=== PATIENT | female | born 1960 | race Caucasian/White ===

== ENCOUNTER 2019-12-15 15:55 | Outpatient (CLI) | payer OTHER, SELFPAY ==
[2019-12-15 17:59] LABS: Blood Urea Nitrogen 13 mg/dL (7-17); Calcium 9.6 mg/dL (8.4-10.2); Carbon Dioxide 27 mmol/L (22-30); Chloride 99 mmol/L (98-107); Cholesterol 155 mg/dL (0-200); Estimated Glomerular Filt Rate > 60; Glucose 146 mg/dL (65-105); HDL Direct 70 mg/dL; Potassium 4.5 mmol/L (3.4-5.0); Sodium 141 mmol/L (137-145); Triglycerides 115 mg/dL (<150)
[2019-12-15 18:03] LABS: Hemoglobin A1C 6.8 % (<5.7)
[2019-12-15 18:10] LABS: LDL Cholesterol Direct 70 mg/dL
[2019-12-15 18:17] LABS: Free T4 Free Thyroxine 1.17 ng/mL (0.78-2.19)
[2019-12-15 18:30] LABS: Thyroid Stimulating Hormone 0.171 uIU/mL (0.465-4.680)
[2019-12-15 18:31] LABS: MALB Creatinine Ratio < 4.3 mg/g (0-30); Microalbumin Urine Random < 6.0 mg/L (0-16.7)
[2019-12-18 14:23] LABS: Iron 144 ug/dL (37-170)
[2019-12-18 14:31] LABS: Percent Iron Saturation 44 % (20-50)
[2019-12-19 22:37] LABS: ALT 18 U/L (6-29); Alpha-2-Macroglobulin 226 mg/dL (106-279); Apolipoprotein A1 194 mg/dL (101-198); Fibrosis Score 0.06; Fibrosis Stage F0; GGT 6 U/L (3-70); Haptoglobin 243 mg/dL (43-212); Necroinflammat Act Grade A0; Total Bilirubin 0.5 mg/dL (0.2-1.2)
== END 2019-12-15 15:56 | disposition home or self-care (01) ==
LOC: ANHBWCLAB 15:59
PROVIDERS: PCP Internal Medicine; Visit Provider Internal Medicine
DX: Z79.899 Other long term (current) drug therapy (principal); E11.9 Type 2 diabetes mellitus without complications; E78.5 Hyperlipidemia, unspecified
CPT/HCPCS: 36415; 80048; 80061; 81596; 82043; 82542; 82728; 83036; 83540; 83550; 84439; 84443

== ENCOUNTER → 2020-07-19 13:25 | Outpatient (CLI) | payer OTHER, SELFPAY ==
--- NOTE | ~2020-07-19 | DEXA_ITS ---
Bone Density Report Name: Indira Olivo Age: 60 Sex: Female Ethnicity: White Date of : 1960 Indication: postmenopausal; screening for osteoporosis; height loss; asthma or emphysema; Referring Provider: Chelsi Pagan Study: Bone densitometry was performed. Exam Date: July 19, 2020 Accession number: [id number] Bone Density: Region BMD T-score Z-score Classification AP Spine (L1-L4) 1.168 1.1 2.5 Normal Femoral Neck (Left) 0.843 -0.1 1.2 Normal Total Hip (Left) 0.994 0.4 1.3 Normal Femoral Neck (Right) 0.877 0.3 1.5 Normal Total Hip (Right) 1.015 0.6 1.5 Normal Total Hip Mean 1.005 0.5 1.4 Normal World Health Organization criteria for BMD impression classify patients as: Normal (T-score at or above -1.0), Osteopenia (T-score between -1.0 and -2.5), or Osteoporosis (T-score at or below -2.5). 10-year Fracture Risk: FRAX not reported because: All T-scores for Spine Total, Hip Total, Femoral Neck at or above -1.0 Previous Exams: Region Exam Age BMD T-score BMD Change BMD Change Date g/cm2 vs Baseline vs Previous AP Spine(L1-L4) 07/19/2020 60 1.168 1.1 -0.065* -0.043* 09/29/2015 55 1.211 1.5 -0.022 -0.022 05/01/2011 51 1.233 1.7 Total Hip(Left) 07/19/2020 60 0.994 0.4 -0.126* -0.118* 09/29/2015 55 1.113 1.4 -0.008 -0.008 05/01/2011 51 1.121 1.5 Total Hip(Right) 07/19/2020 60 1.015 0.6 -0.142* -0.121* 09/29/2015 55 1.136 1.6 -0.020 -0.020 05/01/2011 51 1.157 1.8 *Denotes significance at 95% confidence level, LSC for AP Spine = 0.022 g/cm2, LSC for Total Hip = 0.027 g/cm2 Clinical Information Provided by Patient: Has used the following medications: Vitamin D, Calcium Has the following medical conditions: Asthma or Emphysema Patient maximum height was 69 Menopause Age: 50 No regular weight bearing exercise Drinks caffeinated beverages Onset of menses at age 12 Number of children 0 Missed period for more than 6 months in a row Impression: The patient has normal bone mass. The BMD for the AP Spine(L1-L4) decreased, changing by -0.043 since the last DXA exam. The BMD for the Total Hip(Left) decreased, changing by -0.118 since the last DXA exam. The BMD for the Total Hip(Right) decreased, changing by -0.121 since the last DXA exam. Discussion: BONE DENSITY IS ABOVE THE MINIMUM DESIRABLE LE
== END ==
PROVIDERS: PCP Internal Medicine; Visit Provider Student in an Organized Health Care Education/Training Program
DX: Z78.0 Asymptomatic menopausal state (principal)
CPT/HCPCS: 77080

== ENCOUNTER 2023-01-29 14:04 | Outpatient (CLI) | payer BC, SELFPAY ==
--- NOTE | ~2023-01-29 | US_ITS ---
Pelvic ultrasound. Clinical History: Postmenopausal bleeding Technique: Realtime transabdominal and transvaginal scanning of the pelvis was performed. Color flow Doppler and Doppler spectral analysis were performed. Findings: The uterus is retroverted. The endometrial stripe has a thickness of 2 mm. No focal myomet rial mass is identified. Prominent nabothian cyst measures 1.8 cm in diameter. The right ovary is not visualized. No significant right ovarian or adnexal mass is seen. The left ovary measures 1.6 x 1.4 x 1.4 cm. No significant left ovarian or adnexal mass is seen. There is no evidence of free fluid in the cul de sac. Impression: No abnormal endometrial thickening. Prominent cervical nabothian cysts. Right ovary not visualized. Reviewed, dictated and finalized at [facility]. Impression: No abnormal endometrial thickening. Prominent cervical nabothian cysts. Right ovary not visualized.
== END 2023-01-29 14:05 | disposition home or self-care (01) ==
PROVIDERS: PCP Physician Assistant; Visit Provider Registered Nurse
DX: N95.0 Postmenopausal bleeding (principal); N88.8 Other specified noninflammatory disorders of cervix uteri
CPT/HCPCS: 76830; 76856

== ENCOUNTER 2023-02-12 01:13 | Day surgery (SDC) | payer BC, SELFPAY ==
[2023-02-05 11:50] VITALS: BMI 23.6
--- NOTE | 2023-02-12 07:27 | WPDANESEPPF ---
Anes - Initial Pre Proc Eval Procedure: Operation Date: 02/12/23 11:30 Proposed Procedures p Screening Colonoscopy - Ronaldo Canchola MD Date/Time: 02/12/23 07:27 Surgeon: Ronaldo Canchola MD Pre Op Diagnosis: neoplasm screening Patient Data Age: 63 Gender: F Height: 1.75 m Weight: 72.7 kg Allergies Allergy/AdvReac Type Severity Reaction Status Date / Time No Known Allergies Allergy Verified 02/12/23 10:19 Home Medications Medication Instructions Recorded Confirmed Type aspirin 81 mg tablet,delayed 81 mg PO DAILY 12/22/19 02/06/23 History release (Aspir-Low) calcium carbonate 500 mg-vitamin 2 tablet PO DAILY 12/22/19 02/06/23 History D3 10 mcg (400 unit) tablet (Calcium 500 + D) multivitamin 1 tablet PO DAILY 12/22/19 02/06/23 History omega-3 fatty acids 1,000 mg 2,000 mg PO DAILY 12/22/19 02/06/23 History capsule (Fish Oil Concentrate) vit C 250 mg-vit E 90 mg-zinc 40 1 tablet PO BID 12/22/19 02/06/23 History mg-copper 1 [id number] capsule (PreserVision AREDS-2) cholecalciferol (vitamin D3) 25 2,000 unit PO DAILY 01/25/21 02/06/23 History mcg (1,000 unit) capsule omeprazole 20 mg capsule,delayed 20 mg PO DAILY #90 caps 09/26/21 02/06/23 Rx release pravastatin 20 mg tablet See Rx Instructions .Route 01/23/22 02/06/23 Rx .COMPLEX #90 tabs trazodone 100 mg tablet 200 mg PO DAILY sleep #180 tabs 01/23/22 02/06/23 Rx melatonin 5 mg capsule 5 mg PO HS PRN Sleep 05/17/22 02/06/23 History albuterol sulfate 90 mcg/actuation 2 puff inhalation Q4-6H PRN 06/07/22 02/06/23 Rx aerosol inhaler shortness of breath or wheezing #8.5 grams fluticasone 250 mcg-salmeterol 50 1 inh inhalation BID #60 ea 06/07/22 02/06/23 Rx mcg/dose blistr powdr for inhalation (Advair Diskus) venlafaxine 150 mg 150 mg PO DAILY #90 caps 06/28/22 02/06/23 Rx capsule,extended release 24 hr verapamil 240 mg tablet,extended See Rx Instructions .Route 10/18/22 02/06/23 Rx release .COMPLEX #180 tabs lisinopril 40 mg tablet See Rx Instructions .Route 11/22/22 02/06/23 Rx .COMPLEX #180 tabs metformin 1,000 mg tablet 1,000 mg PO BID #180 tabs 11/22/22 02/06/23 Rx oxybutynin chloride 5 mg 5 mg PO DAILY #90 tabs 01/09/23 02/06/23 Rx tablet,extended release 24 hr semaglutide 0.25 mg or 0.5 mg (2 0.5 mg (0.8 mL) subcut WEEKLY #3 mL 01/19/23 02/06/23 Rx mg/3 mL) subcutaneous pen injector (Ozempic) celecoxib 200 mg capsule 200 mg PO DAILY PRN Pain 02/06/23 02/06/23 History Patient hx anesthesia problems: none Family hx anesthesia problems: none Results Review: All pre-operative results and documents have been reviewed as part of the pre-operative evaluation. 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
[2023-02-12 10:20] VITALS: BP 146/78; PULSE 98; RESP 20; TEMP 36; O2SAT 100
[2023-02-12] MEDS: LACTATED RINGERS 1,000 ML 150 ML IV CONT (10:36)
[2023-02-12 10:40] LABS: Glucose Point of Care 140 mg/dl (65-105)
--- NOTE | 2023-02-12 10:40 | PM.HPGS ---
History of Present Illness History of Present Illness Consent: Risks, benefits, and alternatives have been discussed and questions answered. Patient agrees to proceed with procedure. Chief complaint: neoplasm screening Narrative: Indira Olivo is a 63 year old female with history of polyp, last colonoscopy 2018 Review of Systems Constitutional: Constitutional: Denies headache(s) and Denies weakness Eyes: Eyes: Denies blurry vision ENT: Reports Normal hearing present, Denies headache(s) and Denies neck pain Cardiovascular: Cardiovascular: Denies chest pain and Denies dyspnea Respiratory: Respiratory: Denies dyspnea Gastrointestinal: Gastrointestinal: Reports no additional gastrointestinal complaints Genitourinary: Genitourinary: Denies dysuria Musculoskeletal: Musculoskeletal: Denies neck pain Integumentary/Breasts: Skin/Breast: Denies dry skin Neurologic: Reports Normal hearing present, Denies headache(s) and Denies weakness Psychiatric: Psychiatric: Denies anxiety Endocrine: Endocrine: Denies change in body appearance Hematologic/Lymphatic: Hematologic/Lymphatic: Denies easy bleeding Allergic/Immunologic: Allergic/Immunologic: Denies urticaria PMFSH Past Medical History Medical History (Updated 02/12/23 @ 10:42 by Ronaldo Canchola MD) Abnormal finding of blood chemistry Abnormal TSH Benign essential hypertension BMI 26.0-26.9,adult BMI 27.0-27.9,adult Colon polyp Deafness in right ear Depression DM type 2 (diabetes mellitus, type 2) Encounter for preventive health examination Encounter for routine adult health examination without abnormal findings Family history of colorectal cancer GERD (gastroesophageal reflux disease) Hearing loss Hx of colonic polyps Hyperlipidemia Insomnia Mild reactive airways disease On termite renewal inspector drug therapy NIGEL (obstructive sleep apnea) Parotitis RLS (restless legs syndrome) Vitamin D deficiency Surgical History Surgical History (Updated 01/09/23 @ 13:08 by Valeria Fuentes MA) History of colonoscopy with polypectomy 2018 History of ear surgery History of endometrial ablation [place] teeth extracted Family History Family History Sibling Family history of malignant neoplasm of breast in first degree relative Cerebrovascular accident Family history of primary malignant neoplasm of liver Diabetes mellitus Father Family history of diabetes mellitus in first degree relative Diabetes mellitus Mother Family history of diabetes mellitus in first degree relative Diabetes mellitus Grandparent Diabetes mellitus Other Hypertension Social History Social History (Updated 01/09/23 @ 13:09 by MERISSA Wright Smoking status: Never smoker Second hand tobacco smoke exposure: No Alcohol intake: never Substance use: never Substance use type: does not use Lack of Transportation: No Lack of Food: Never True Current Housing: I Have Housing Concerned About Future Housing: No Difficulty Paying Gas/Electric Bills: No Difficulty Paying for Meds: No Currently Unemployed: No Education: High School Diploma/GED Difficulty w/ Childcare or Family Care: No Living arrangements: alone Occupation/Education: retired Gender identity (if verbalized by the patient): Female Sexual Orientation (if Verbalized by the Patient): Straight or Heterosexual Spiritual care concerns: No Meds Home Medications and Allergies Home Medications Medication Instructions Recorded Confirmed Type aspirin 81 mg tablet,delayed 81 mg PO DAILY 12/22/19 02/06/23 History release (Aspir-Low) calcium carbonate 500 mg-vitamin 2 tablet PO DAILY 12/22/19 02/06/23 History D3 10 mcg (400 unit) tablet (Calcium 500 + D) multivitamin 1 tablet PO DAILY 12/22/19 02/06/23 History omega-3 fatty acids 1,000 mg 2,000 mg PO DAILY 12/22/19 02/06/23 History capsule (Fish Oil Magalie
[2023-02-12 11:11] VITALS: BP 121/57; PULSE 80; RESP 27; O2SAT 100
[2023-02-12 11:21] VITALS: BP 117/58; PULSE 77; RESP 16; O2SAT 100
[2023-02-12 11:31] VITALS: BP 137/69; PULSE 74; RESP 23; O2SAT 100
== END 2023-02-12 11:37 | disposition home or self-care (01) ==
PROVIDERS: PCP Physician Assistant; Visit Provider Internal Medicine Gastroenterology
PROC: 0DJD8ZZ Inspection of Lower Intestinal Tract, Via Natural or Artificial Opening Endoscopic (ICD-10-PCS; CPT 45378; principal; 2023-02-12 11:30)
DX: Z12.11 Encounter for screening for malignant neoplasm of colon (principal); D12.5 Benign neoplasm of sigmoid colon; K64.8 Other hemorrhoids; I10 Essential (primary) hypertension; E11.9 Type 2 diabetes mellitus without complications; E78.5 Hyperlipidemia, unspecified; G47.33 Obstructive sleep apnea (adult) (pediatric); K21.9 Gastro-esophageal reflux disease without esophagitis; J45.909 Unspecified asthma, uncomplicated; E55.9 Vitamin D deficiency, unspecified; F32.A Depression, unspecified; Z79.82 Long term (current) use of aspirin; Z79.51 Long term (current) use of inhaled steroids; Z79.84 Long term (current) use of oral hypoglycemic drugs; Z79.899 Other long term (current) drug therapy
CPT/HCPCS: 45385; 82948; 88305; J2704; J7120

== ENCOUNTER 2023-04-02 22:22 | Emergency (ER) | payer BC, SELFPAY ==
--- NOTE | ~2023-04-02 | CT_ITS ---
EXAMINATION: CT abdomen pelvis w con DATE: 04/03/2023 00:57 INDICATION: Left lower quadrant pain. TECHNIQUE: Computed tomography (CT) of the abdomen and pelvis was performed with 100 cc Omnipaque 350 intravenous contrast. The dose-length product was 614.00 mGy-cm. Automated exposure control and iter ative reconstruction technique were employed. COMPARISON: None. FINDINGS: Lung bases are unremarkable. Heart size normal. No significant pleural or pericardial effus ion. There is calcified granulomas in the left lower lobe, liver and spleen. Study limited by motion. Fatty infiltration of the liver. The pancreas, adrenal glands and kidneys ar e unremarkable. There is extensive colonic wall mucosal thickening extending from the transverse colo n through the sigmoid colon and rectum. No obstruction. Small amount of free fluid in the pelvis. No free air. Status post hysterectomy with small nabothian cysts in the cervix. No acute osseous abnorma lity. IMPRESSION: 1. Extensive colonic wall mucosal thickening, compatible with colitis, most likely infectious or infl ammatory. Reviewed, dictated and finalized at location [facility]. IMPRESSION: 1. Extensive colonic wall mucosal thickening, compatible with colitis, most lik nellie infectious or inflammatory.
[2023-04-02 22:29] VITALS: BP 147/96; PULSE 115; RESP 17; TEMP 36.4; O2SAT 100
[2023-04-02 23:15] VITALS: O2SAT 100
[2023-04-02 23:16] VITALS: BP 173/80; O2SAT 99
[2023-04-02 23:23] LABS: Basophils Absolute Auto 0.1 K/mm3 (0.0-0.1); Basophils Percent Auto 0.5 % (0.2-1.2); Eosinophils Percent Auto 0.2 % (0-4.4); Hematocrit 42.3 % (37.0-47.0); Hemoglobin 14.2 g/dL (12.0-15.0); Immature Granulocyte Absolute 0.14 K/mm3 (0.00-0.031); Immature Granulocyte Percent A 0.6 % (0-0.5); Lymphocytes Absolute Auto 3.27 K/mm3 (0.9-3.2); Lymphocytes Percent Auto 14.2 % (18.3-44.2); Mean Corpuscular HGB Conc 33.6 g/dl (32-36); Mean Corpuscular Hemoglobin 28.9 pg (26-34); Mean Corpuscular Volume 86.2 fl (80-100); Mean Platelet Volume 9.9 fl (7.4-10.4); Monocytes Absolute Auto 1.6 K/mm3 (0.1-0.6); Neutrophils Absolute Auto 17.9 K/mm3 (1.3-6.7); Neutrophils Percent Auto 77.5 % (45.5-73.1); Platelet Count Result 297 k/mm3 (150-375); Red Blood Count 4.91 M/mm3 (4.2-5.4); Red Cell Distribution Width 13.8 % (11.5-14.5); White Blood Count 23.1 K/mm3 (4.5-10.0)
[2023-04-02 23:30] VITALS: O2SAT 99
[2023-04-02 23:31] VITALS: BP 174/77; PULSE 78; RESP 14; O2SAT 99
[2023-04-02 23:45] VITALS: O2SAT 100
[2023-04-02 23:50] LABS: Alanine Aminotransferase 15 U/L (6-35); Albumin Level 4.5 g/dL (3.5-5.1); Alkaline Phosphatase 73 U/L (38-126); Anion Gap 11 mmol/L (8-16); Aspartate Amino Transferase 21 U/L (14-36); Bilirubin,Total 0.8 mg/dL (0.2-1.3); Blood Urea Nitrogen 14 mg/dL (7-17); Calcium 9.5 mg/dL (8.4-10.2); Carbon Dioxide 25 mmol/L (22-30); Chloride 100 mmol/L (98-107); Estimated CRCL calculation 59 ml/min; Estimated Glomerular Filt Rate > 60; Glucose 224 mg/dL (65-110); Lipase 91 U/L (23-300); Potassium 4.3 mmol/L (3.4-5.0); Sodium 136 mmol/L (137-145)
[2023-04-03] VITALS (9 sets, daily range): BP systolic 147–173; BP diastolic 63–78; PULSE 95–100; RESP 14; O2SAT 99–100
[2023-04-03] MEDS: SODIUM CHLORIDE 0.9% IV 1,000 ML 999 ML IV CONT (00:11)
--- NOTE | 2023-04-03 00:11 | ED.GENADULT ---
HPI - General Adult General Chief complaint: Abdominal Pain Stated complaint: abd pain/blood in stool Time Seen by Provider: 04/02/23 23:06 History of Present Illness HPI narrative: Patient 63-year-old female who presents the emergency department with chief complaint of left lower quadrant pain and rectal bleeding. Patient reports she has history of internal hemorrhoids and reports that she had a large bowel movement on Sunday that was very tough the patient states she started a stool softener and then had a normal bowel movement but did have some blood patient reports since then she has not had a bowel movement blood but has had blood coming from her rectum and reports that she started having pain in the left lower quadrant patient reports no prior history of diverticulitis Related Data Home Medications Medication Instructions Recorded Confirmed aspirin 81 mg tablet,delayed 81 mg PO DAILY 12/22/19 02/06/23 release (Aspir-Low) calcium carbonate 500 mg-vitamin 2 tablet PO DAILY 12/22/19 02/06/23 D3 10 mcg (400 unit) tablet (Calcium 500 + D) multivitamin 1 tablet PO DAILY 12/22/19 02/06/23 omega-3 fatty acids 1,000 mg 2,000 mg PO DAILY 12/22/19 02/06/23 capsule (Fish Oil Concentrate) vit C 250 mg-vit E 90 mg-zinc 40 1 tablet PO BID 12/22/19 02/06/23 mg-copper 1 [id number] capsule (PreserVision AREDS-2) cholecalciferol (vitamin D3) 25 2,000 unit PO DAILY 01/25/21 02/06/23 mcg (1,000 unit) capsule melatonin 5 mg capsule 5 mg PO HS PRN Sleep 05/17/22 02/06/23 celecoxib 200 mg capsule 200 mg PO DAILY PRN Pain 02/06/23 02/06/23 Allergies Allergy/AdvReac Type Severity Reaction Status Date / Time No Known Allergies Allergy Verified 04/03/23 00:12 Review of Systems Review of Systems: A 10 system review of systems was completed on the patient and is negative except for what is stated in the HPI. Nursing and ancillary documentation was reviewed. [facility] Past Medical History Medical History Abnormal finding of blood chemistry Abnormal TSH Benign essential hypertension BMI 26.0-26.9,adult BMI 27.0-27.9,adult Colon polyp Deafness in right ear Depression DM type 2 (diabetes mellitus, type 2) Encounter for preventive health examination Encounter for routine adult health examination without abnormal findings Family history of colorectal cancer GERD (gastroesophageal reflux disease) Hearing loss Hx of colonic polyps Hyperlipidemia Insomnia Mild reactive airways disease On intermodal truck driver drug therapy NIGEL (obstructive sleep apnea) Parotitis RLS (restless legs syndrome) Vitamin D deficiency Surgical History Surgical History History of colonoscopy with polypectomy 2018 History of ear surgery History of endometrial ablation [place] teeth extracted Family History Family History Sibling Family history of malignant neoplasm of breast in first degree relative Cerebrovascular accident Family history of primary malignant neoplasm of liver Diabetes mellitus Father Family history of diabetes mellitus in first degree relative Diabetes mellitus Mother Family history of diabetes mellitus in first degree relative Diabetes mellitus Grandparent Diabetes mellitus Other Hypertension Social History Social History Smoking status: Never smoker Second hand tobacco smoke exposure: No Alcohol intake: never Substance use: never Substance use type: does not use Lack of Transportation: No Lack of Food: Never True Current Housing: I Have Housing Concerned About Future Housing: No Difficulty Paying Gas/Electric Bills: No Difficulty Paying for Meds: No Currently Unemployed: No Education: High School Diploma/GED Difficulty w/ Childcare or
[2023-04-03 00:24] LABS: Lactic Acid Reflex 1.5 mmol/L (0.7-2.0)
[2023-04-03 00:38] LABS: INR 1.1; Prothrombin Time 14.2 Seconds (11.1-14.7)
[2023-04-03 00:39] LABS: Partial Thromboplastin Time 24.1 SECONDS (22.3-36.8)
[2023-04-03 01:49] LABS: Appearance Urine Clear (Clear); Bacteria Urine Rare /hpf; Bilirubin Urine Negative (Negative); Blood Urine Negative (Negative); Color Urine Yellow (Yellow); Glucose Urine UA 2+ mg/dL (Negative); Ketones Urine 2+ mg/dL (Negative); Leukocyte Esterase Ur Negative LEU/UL (Negative); Nitrate Urine Negative (Negative); Non Pathogenic Casts 0-2; Protein Urine Trace mg/dL (Negative); RBC Urine 0-2 /hpf (0-2); Squamous Epithelial Cell Urine Few /hpf (Few); Urobilinogen Urine 0.2 mg/dL (<2.0); WBC Urine 0-5 /hpf; pH Urine 5.5 (5.0-9.0)
[2023-04-03 01:50] LABS: Add Urine Microscopic? YES
[2023-04-03] MEDS: CIPROFLOXACIN 500 MG TAB PO (05:25)
[2023-04-03] MEDS: metroNIDAZOLE 250 MG TABLET 500 MG PO (05:25)
== END 2023-04-03 05:25 | disposition home or self-care (01) ==
PROVIDERS: Emergency Provider Emergency Medicine; PCP Physician Assistant
DX: K52.9 Noninfective gastroenteritis and colitis, unspecified (principal); I10 Essential (primary) hypertension; E11.9 Type 2 diabetes mellitus without complications; E78.5 Hyperlipidemia, unspecified; J45.909 Unspecified asthma, uncomplicated; K21.9 Gastro-esophageal reflux disease without esophagitis; G47.33 Obstructive sleep apnea (adult) (pediatric); G25.81 Restless legs syndrome; E55.9 Vitamin D deficiency, unspecified; Z86.010 Personal history of colon polyps; Z79.82 Long term (current) use of aspirin; Z79.84 Long term (current) use of oral hypoglycemic drugs; Z79.85 Long-term (current) use of injectable non-insulin antidiabetic drugs
CPT/HCPCS: 36415; 74177; 80053; 81001; 83605; 83690; 85025; 85610; 85730; 86850; 86900; 86901; 96360; 99284; A9270; J7030; Q9967

== ENCOUNTER 2025-08-07 13:25 | Outpatient (CLI) | payer BC, SELFPAY ==
--- OUTSIDE RECORDS SUMMARY | 2010-02-10 08:15 | XMS_ITS | Continuity of Care Document ---
Author Organization [facility] Address [address] [place] [address] Phone Care Team Providers Care Commercial Driver'S License Driver Name Role Phone Dela Cruz OD, Omar Unavailable Unavailable Procedures Procedure Date Eye Exam & Treatment Refraction Eye Exam & Treatment Refraction Advance Directives Directive Yes / No Effective Date File Name No Information Encounters Encounter Description Practice Location Reason(s) For Visit Diagnoses Date Provider Providers Copied on Encounter Merged with [facility], [address], [place], [place], [id number], tel:[phone] [facility] No Information 2-201 0 Dela Cruz OD Omar. [address] , [address], [place], [place], [facility], . tel:[phone] Referring Provider: Josh Jacobson, [address], [place], [place], [facility]. tel:[phone] Merged with [facility], [address], [place], [place], [id number], [place] tel:[phone] [facility] No Information 7-200 8 Dela Cruz OD Omar. [address] , [address], [place], [place], [facility], . tel:[phone] Referring Provider: Josh Jacobson, [address], [place], [place], [facility]. tel:[phone] Family History Family Member Type Diagnosis Age At Onset No Information Payers Payer name Insurance type Covered constitution party ID Authoriza tion(s) No Information Social History Type Description Quantity Date Captured Comments Sex Female Smoking Status No Information Chief Complaint And Reason For Visit No Information Reason For Referral Reason For Referral No Information History Of Present Illness Encounter Date Complaint History Of Prese nt Illness No Information Functional Status Date Functional Assessmen t No Information Instructions Date Instruction Additional Infor mation No Information Assessments Type Assessment Date No Information Patient Care Teams Name Effective Dates (start - stop) Status Members No Information
--- NOTE | ~2025-08-07 | MM_ITS ---
EXAMINATION: MM screening farrukh BI w shaun HISTORY: Screening TECHNIQUE: Craniocaudal and mediolateral oblique 3-D tomosynthesis images were obtained and synthetic 2-D images were generated. CAD analysis was submitted and interpreted. COMPARISON: No prior mammogram is available for comparison at this institution. BREAST PARENCHYMAL COMPOSITION: There are scattered areas of fibroglandular density. FINDINGS: There is no evidence of suspicious mass or architectural distortion to suggest malignancy. Focal asymmetry in the right retroareolar region. Asymmetry in the upper left breast, posterior depth, seen in the left MLO projection. IMPRESSION: 1. Focal asymmetry in the right retroareolar region. Indeterminant calcifications in the lower inner quadrant of the right breast, posterior depth. The study is incomplete. A diagnostic mammogram and a diagnostic ultrasound are recommended. 2. Asymmetry in the upper left breast, posterior depth, seen in the left MLO projection. The study is incomplete. A diagnostic mammogram and a diagnostic ultrasound are recommended. BI-RADS 0: Incomplete-Need additional imaging evaluation. Reviewed, dictated and finalized at location Q. IMPRESSION: 1. Focal asymmetry in the right retroareolar region. Indeterminant calcificatio ns in the lower inner quadrant of the right breast, posterior depth. The study is incomplete. A diagnostic mammogram and a diagnostic ultrasound are recommend ed. 2. Asymmetry in the upper left breast, posterior depth, seen in the left MLO pr ojection. The study is incomplete. A diagnostic mammogram and a diagnostic ultr asound are recommended. BI-RADS 0: Incomplete-Need additional imaging evaluation.
--- NOTE | ~2025-08-07 | DEXA_ITS ---
Bone Density Report Name: APPLE RAMIRES Age: 65 Sex: Female Ethnicity: White Date of : 1960 Indication: postmenopausal; screening for osteoporosis; height loss; Referring Provider: MANDY MARADIAGA Study: Bone densitometry was performed. Exam Date: August 07, 2025 Accession number: [id number] Bone Density: Region BMD T-score Z-score Classification AP Spine(L2, L3, L4) 1.175 0.9 2.7 Normal Femoral Neck (Left) 0.796 -0.5 1.0 Normal Total Hip (Left) 0.890 -0.4 0.8 Normal Femoral Neck (Right) 0.801 -0.4 1.1 Normal Total Hip (Right) 0.848 -0.8 0.4 Normal Total Hip Mean 0.869 -0.6 0.6 Normal World Health Organization criteria for BMD impression classify patients as: Normal (T-score at or above -1.0), Osteopenia (T-score between -1.0 and -2.5), or Osteoporosis (T-score at or below -2.5). 10-year Fracture Risk: FRAX not reported because: All T-scores for Spine Total, Hip Total, Femoral Neck at or above -1.0 Clinical Information Provided by Patient: Has used the following medications: Vitamin D, Calcium Patient maximum height was 69 Menopause Age: 56 No regular weight bearing exercise Drinks caffeinated beverages Onset of menses at age 12 Number of children 0 Impression: The patient has normal bone mass. Discussion: BONE DENSITY IS ABOVE THE MINIMUM DESIRABLE LEVEL AT ALL SKELETAL SITES TESTED. This patient?s bone mineral density is above the minimum desirable level (T-score -1.0 or better) at all sites measured. The patient should follow a healthful lifestyle (good nutrition with adequate calcium and vitamin D, and appropriate weight-bearing exercise). Follow-Up: Consider repeating this study in 5 years or sooner if there is some new clinical indication. Reported by: BETY on 08/07/2025 2:16:00 PM. Reviewed, dictated and finalized at location A.
--- OUTSIDE RECORDS SUMMARY | 2025-08-07 13:30 | XMS_ITS | Clinical Summary ---
Author Organization [facility] Address [address] [facility] [address] [place] [address] Phone Care Team Providers Care Transaction Coordinator Name Role Phone Josh Blakely MD Primary Care Provider [phone] Allergies No known active allergies Medications venlafaxine (EFFEXOR) 75 MG Tablet Take 75 mg by mouth 2 times daily. Active L-Methylfolate- Algae (DEPLIN 15 PO) Take 1 Tab by mouth daily. Active OMEPRAZOLE PO Take 20 mg by mouth 2 times daily. Active SITagliptin-met FORMIN (JANUMET) 50-1000 MG Tablet Take 1 Tab by mouth 2 times daily (with meals). Active pravastatin (PRAVACHOL) 20 MG Tablet Take 20 mg by mouth every evening. Active verapamil CR (VERELAN) 240 MG CAPSULE SR 24 HR Take 240 mg by mouth 2 times daily. Active lisinopril (PRINIVIL, ZESTRIL) 40 MG Tablet Take 40 mg by mouth 2 times daily. Active traZODone (DESYREL) 100 MG Tablet Take 100 mg by mouth nightly. Active fluticasone-dhiraj meterol (ADVAIR DISKUS) 250-50 MCG/DOSE AEROSOL POWDER, BREATH ACTIVATED take 1 Puff by inhalation 2 times daily. Active Albuterol Sulfate (PROAIR HFA IN) take 1 Puff by inhalation 4 times daily as needed. Active Multiple Vitamins-Minera ls (PRESERVISION AREDS PO) Take 1 Tab by mouth daily. Active fish oil-omega-3 fatty acids 1000 MG Capsule Take 1,000 mg by mouth 2 times daily. Active Multiple Vitamins-Minera ls (MULTIVITAMIN ADULT PO) Take 1 Tab by mouth daily. Active Calcium Citrate-Vitamin D (CALCIUM + D PO) Take 1 Tab by mouth 2 times daily. Active Aspirin 81 MG Tablet Take 81 mg by mouth daily. Active Melatonin 10 MG Tablet Take 2 Tabs by mouth nightly. Active Family History Medical History Relation Name Comments Heart Disease Brother Lung Cancer Brother Cancer Father skin Other-comment Father myelosisplasti c syndrome Diabetes Mother Heart Disease Mother Colon Cancer Sister liver and colon Diabetes Sister Heart Disease Sister Parkinsonism Sister Relation Name Status Comments Brother Father Mother Sister Social History Tobacco Use Types Packs/Day Years Used Date Smoking Tobacco: Former Cigarettes Smokeless Tobacco: Never Comments:Rare as a teenager. 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 Not on file Not on file Not on file Last Filed Vital Signs Vital Sign Reading Time Taken Comments Blood Pressure 108/61 12/12/2017 11:23 AM DYE TUB OPERATOR Pulse 79 12/12/2017 11:23 AM DYE TUB OPERATOR Temperature 36 C (96.8 F) 12/12/2017 11:23 AM DYE TUB OPERATOR Respiratory Rate 16 12/12/2017 11:23 AM DYE TUB OPERATOR Oxygen Saturation 97% 12/12/2017 11:23 AM DYE TUB OPERATOR Inhaled Oxygen Concentration - - Weight 81.6 kg (180 lb) 12/03/2017 1:00 PM DYE TUB OPERATOR Height 175.3 cm (5' 9) 12/03/2017 1:00 PM DYE TUB OPERATOR Body Mass Index 26.58 12/03/2017 1:00 PM DYE TUB OPERATOR Plan of Treatment Health Maintenance Due Date Last Done Comments Hepatitis C Virus (HCV) Screening 1960 TdaP Immunization 1960 Pap Smear 1982 Cervical Cancer Screening (CCS) 1991 HPV/Cotest 1991 Cologuard 2006 Immunochemical Fecal Occult Blood 2006 Pneumococcal Immunization (5 0+ years) (1 of 1 - PCV) 2011 Zoster Immunization (1 of 2) 2011 Colonoscopy 12/12/2022 12/12/2017, 12/18/2011 Colorectal Cancer Screening 12/12/2022 Influenza Immunization (#1) 2025 SARS-COV-2 Immunization ( - season) 2025 Respiratory Syncytial Virus (RSV) Immunization (Adult) (1 - 1-dose 75+ series) 01/25/2036 Hepatitis B Immunization Aged Out No longer eligible based on patient's age to complete this topic Human Papillomavirus (HPV) Immunization Aged Out No longer eligible b ased on patient's age to complete this topic Meningococcal Immunization (ACWY) Aged Out No longer eligible b ased on patient's age to complete this topic Rotavirus Immunization Aged Out No lo nger eligible based on patient's age to complete this topic Procedures Procedure Name Priority Date/Time Associated Diagnosis Comments COLONOSCOPY Routine 12/18/2011 from Last 3 Months or Most Recently Relevant to Health Maintenance Results * COLONOSCOPY (12/18/2011) Omar Calvo DO PROCEDURE/MINOR SURGICAL ORDERA BLES Final Result from Last 3 Months or Most Recently Relevant to Health Maintenance Care Teams Transaction Coordinator Relationship Specialty Start Date End Date Josh Blakely MD PCP - General Internal Medicine 12/12/17
--- OUTSIDE RECORDS SUMMARY | 2025-08-07 13:30 | XMS_ITS | Clinical Summary ---
Author Organization [facility] Address [address] [place] [address] Phone Care Team Providers Care Agricultural Specialist Name Role Phone Josh Blakely MD Primary Care Provider + Allergies No known active allergies Medications venlafaxine (EFFEXOR) 75 mg tablet Take 150 mg by mouth daily. Active L-methylfolate (DEPLIN) 15 mg Tablet Take 15 mg by mouth daily. Active traZODone (DESYREL) 100 mg tablet Take 100 mg by mouth daily at bedtime. Active omeprazole (PRILOSEC) 20 mg Capsule, Delayed Release(E.C.) Take 20 mg by mouth daily. Active sitaGLIPtin-Met FORMIN (JANUMET) 50-1,000 mg tablet Take 1 Tab by mouth 2 times daily with meals. Active NIACIN (NIASPAN EXTENDED-RELEAS E ORAL) Take by mouth. Activ e pravastatin (PRAVACHOL) 20 mg tablet Take 20 mg by mouth Daily LATE. Active verapamil sr 24 hour (COVERA-HS) 240 mg tablet Take 480 mg by mouth daily at bedtime. Active lisinopril (PRINIVIL) 40 mg tablet Take 40 mg by mouth Daily LATE. Active fluticasone-dhiraj meterol (ADVAIR DISKUS) 250-50 mcg/dose Disk with Device Take 1 Puff by inhalation 2 times daily. Active albuterol 90 mcg/Actuation HFA inhaler Take 2 Puffs by inhalation every 6 hours as needed for Shortness of Breath. Active omega-3 fatty acids-fish oil 300-1,000 mg Capsule Take by mouth daily. Active VIT C/RAMESH AC/LUT/COPPER/Z NOX (PRESERVISION LUTEIN ORAL) Take by mouth. Ac tive multivitamin (DAILY-RAMESH) tablet Take 1 Tab by mouth daily. Active CALCIUM CARBONATE/VITAM IN D3 (CALCIUM + D ORAL) Take by mouth. Activ e aspirin (MICHEL CHEWABLE) 81 mg Tablet, Chewable Take 81 mg by mouth daily. Active Social History Tobacco Use Types Packs/Day Years Used Date Smoking Tobacco: Never Alcohol Use Standard Drinks/Week Comments No 0 (1 standard drink = 0.6 oz pur e alcohol) Comments Unknown Sex and Gender Information Value Date Recorded Sex Assigned at Not on file Legal Sex Female 12:58 PM CDT Gender Identity Not on file Sexual Orientation Not on file Last Filed Vital Signs Vital Sign Reading Time Taken Comments Blood Pressure 132/57 02/23/2014 5:22 PM CDT Pulse 58 02/23/2014 5:22 PM CDT Temperature 35.6 C (96 F) 02/23/2014 5:22 PM CDT Respiratory Rate 18 02/23/2014 5:22 PM CDT Oxygen Saturation 96% 02/23/2014 5:22 PM CDT Inhaled Oxygen Concentration - - Weight 88 kg (194 lb) 02/23/2014 1:28 PM CDT Height 175.3 cm (5' 9) 02/19/2014 1:25 PM CDT Body Mass Index 28.65 02/19/2014 1:25 PM CDT Plan of Treatment Health Maintenance Due Date Last Done Comments DTAP/TDAP/TD VACCINES (1 - Tdap) 01/25/1980 HPV/Cotest (21-29) 1982 CERVICAL CANCER SCREENING 1991 HPV/Cotest (30-65) 1991 PAP SMEAR 1991 BREAST CANCER SCREENING 2001 COLORECTAL SCREENING 2006 Colorectal Cancer Screening 2006 FIT-DNA Q 3 years 2006 FIT/FOBT Q 1 year 2006 Flex Sig/CT Colonography Q 5 years 2006 ZOSTER VACCINE (1 of 2) 2011 INFLUENZA VACCINE (#1) 2025 RSV VACCINE (60+ or ) (1 - 1-dose 75+ series) 01/25/2036 Insurance BLUE ACCESS/TRUE BLUE PPO Advance Directives For more information, please contact: [phone] * Full Code (Latest Code Status on File) Date Activated Date Inactivated Comments 02/23/2014 1:32 PM 02/23/2014 7:30 PM Care Teams Agricultural Specialist Relationship Specialty Start Date End Date Josh Blakely MD PCP - General Internal Medicine 02/17/14
== END 2025-08-07 13:26 | disposition home or self-care (01) ==
PROVIDERS: Visit Provider Nurse Practitioner Family
DX: R92.8 Other abnormal and inconclusive findings on diagnostic imaging of breast (principal); Z12.31 Encounter for screening mammogram for malignant neoplasm of breast; Z78.0 Asymptomatic menopausal state
CPT/HCPCS: 77063; 77067; 77080